=== PATIENT | female | born 1935 | race Caucasian/White ===

== ENCOUNTER → 2017-02-28 | Outpatient (CLI) | payer MEDICARE, BC ==
--- NOTE | 2017-02-28 16:08 | Diagnostic Imaging Report ---
PROCEDURE: CT chest without contrast. TECHNIQUE: Multiple contiguous axial images were obtained through the chest without the use of intravenous contrast. INDICATION: Chronic cough. COMPARISON: There are no prior studies available for comparison. FINDINGS: The heart size is within normal limits. There are coronary artery calcifications evident. The aorta is not abnormally dilated. There is no obvious mediastinal or hilar adenopathy. The thyroid gland is generally unremarkable. There are mild emphysematous changes involving both lungs. There is no sign of failure, pneumonia, or pleural effusion to suggest an acute abnormality. The sections through the upper abdomen fail to show any sign of an acute abnormality. There is no obvious breast mass. The bone windows show no sign of a fracture or of a destructive lesion. 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 IMPRESSION: 1. There are mild emphysematous changes involving both lungs but there is no sign of an acute cardiopulmonary abnormality. 2. The heart is not enlarged but there are coronary artery calcifications evident. Dictated by: Dictated on workstation # [id number]
== END ==
LOC: RAD 14:28
PROVIDERS: ATTEND Nurse Practitioner Family
DX: J43.9 Emphysema, unspecified (principal); I50.9 Heart failure, unspecified
CPT/HCPCS: 71250

== ENCOUNTER → 2017-03-13 | Outpatient (CLI) | payer MEDICARE ==
[~2017-03-13] MED LIST: RT-ALBUTEROL SULF 2.5 MG/3 ML PRE-MIX VIAL INH ONE
== END ==
LOC: RT 13:59
PROVIDERS: ATTEND Nurse Practitioner Family
DX: J44.9 Chronic obstructive pulmonary disease, unspecified (principal); R05 Cough; R06.00 Dyspnea, unspecified; I50.9 Heart failure, unspecified
CPT/HCPCS: 94060; 94726; 94729